=== PATIENT | male | born 1955 | race Caucasian/White ===

== ENCOUNTER 2017-05-09 09:08 | Day surgery (SDC) | payer OTHER ==
[2017-05-09] MEDS ORDERED: FENTAnyl 50 MCG/ML VIAL (11:02)
[2017-05-09] MEDS ORDERED: MIDAZOLAM 1 MG/ML 2 ML INJ ×2 (11:02→11:03)
== END 2017-05-09 13:36 | disposition home or self-care (01) ==
LOC: GIL 09:08
DX: K64.4 Residual hemorrhoidal skin tags (principal); E11.9 Type 2 diabetes mellitus without complications
CPT/HCPCS: 45378; 82962; 88305